=== PATIENT | female | born 2000 | race Caucasian/White ===

== ENCOUNTER → 2022-09-03 09:08 | Emergency (ER) | payer OTHER ==
[~2022-09-03 09:08] MED LIST: Ibuprofen 200 MG TAB ONE
== END | disposition home or self-care (01) ==
LOC: CSHERS 09:08
DX: J02.9 Acute pharyngitis, unspecified (principal); Z20.822 Contact with and (suspected) exposure to COVID-19; F17.290 Nicotine dependence, other tobacco product, uncomplicated
CPT/HCPCS: 87804; 99284; U0003; U0005

== ENCOUNTER 2023-12-31 13:02 | Inpatient (IN) | payer OTHER ==
[2023-12-31] MEDS ORDERED: fentaNYL 50 mcg/mL 1 mL Vial SLOW IVP PRN (14:56)
[2023-12-31] MEDS ORDERED: Misoprostol 200 MCG TAB PR PRN (14:56)
[2023-12-31] MEDS ORDERED: Ibuprofen 800 MG TAB PO PRN (14:56)
[2023-12-31] MEDS ORDERED: Promethazine HCl 25 MG/ML VIAL IM PRN (14:56)
[2023-12-31] MEDS ORDERED: Methylergonovine 0.2 MG/ML VIAL IM PRN (14:56)
[2023-12-31] MEDS ORDERED: Diphenoxylate HCl/Atropine Tablet PO PRN (14:56)
[2023-12-31] MEDS ORDERED: Carboprost 250 MCG/ML AMP IM PRN (14:56)
[2023-12-31] MEDS ORDERED: Ondansetron PF 4 MG/2 ML Vial IVP PRN (14:56)
[2023-12-31] MEDS ORDERED: Tranexamic Acid 1,000 MG/10 ML VIAL IVP PRN (14:56)
[2023-12-31] MEDS ORDERED: Lactated Ringer's 1,000 ML IV SCH (15:00)
[2023-12-31] MEDS ORDERED: Oxytocin 30 units/NS 500 ML 500 ML IV SCH ×2 (15:00)
[2023-12-31] MEDS: Misoprostol 100 MCG TAB VAG SCH (15:09)
[2023-12-31 15:36] LABS: #Basophils 0.03 10x3/uL (0.0-0.2); #Eosinphils 0.03 10x3/uL (0.0-0.5); #Monocytes 0.51 10x3/uL (0.0-1.1); #Neutrophils 7.24 10x3/uL (1.5-8.4); %Basophils 0.3 % (0.0-2.0); %Eosinophils 0.3 % (0.0-6.0); %Lymphocytes 14.4 % (18.0-47.0); %Monocytes 5.5 % (0.0-10.0); %Neutrophils 78.5 % (40.0-75.0); Hematocrit 24.8 % (34.9-44.5); Mean Corpuscular HGB CONC 32.3 g/dL (32.0-36.0); Mean Corpuscular Hemoglobin 26.4 pg (27.0-33.0); Mean Corpuscular Volume 81.8 fl (81.6-98.3); Mean Platelet Volume 13.3 fl (7.4-10.4); Platelet Count 181 10x3/uL (150-450); RBC Distribution Width 14.4 % (11.5-14.5); Red Blood Cell (RBC) Count 3.03 10x6/uL (3.90-5.03); White Blood Cell (WBC) Count 9.2 10x3/uL (3.5-10.5)
[2023-12-31 15:47] LABS: ALT (SGPT) 9 U/L (8-55); AST (SGOT) 18 U/L (5-34); Albumin 2.5 g/dL (3.5-5.0); Alkaline Phosphatase 159 U/L (40-110); Anion Gap 11 mmol/L (10-20); BUN (Urea Nitrogen) 6 mg/dL (7.0-18.7); Bilirubin, Total 0.2 mg/dL (0.2-1.2); Calc. Creatinine Clearance 0 mL/min (70-130); Calcium 8.7 mg/dL (7.8-10.44); Carbon Dioxide 20 mmol/L (22-29); Chloride 108 mmol/L (98-107); Estimated GFR 128; Globulin 3.6 g/dL (2.4-3.5); Glucose 102 mg/dL (70-105); Potassium 3.4 mmol/L (3.5-5.1); Protein, Total 6.1 g/dL (6.0-8.3); Sodium 136 mmol/L (136-145)
[2023-12-31 16:06] LABS: HBsAg Index 0.23 S/CO (0-0.99); Hep B Surf Ag - L&D Non-Reactive S/CO (NonReactive)
[2023-12-31 16:07] LABS: Syphilis Antibody Nonreactive (Nonreactive); Syphilis Antibody Index 0.03 S/CO (<1.00 Non-Reactive)
[2023-12-31 16:21] VITALS: BMI 26.7
[2023-12-31] MEDS: hydrALAZINE 20 MG/ML VIAL SLOW IVP PRN (17:14)
[2023-12-31] MEDS ORDERED: Lorazepam 2 MG/ML VIAL SLOW IVP PRN (17:17)
[2023-12-31] MEDS ORDERED: Calcium Gluc 4.6 MEQ/10 ML (100 MG/ML) SLOW IVP PRN (17:17)
[2023-12-31] MEDS: Magnesium Sulfate 20 gm/500 ml 20 GM/500 ML BAG IVPB SCH (17:22)
[2023-12-31] MEDS: Labetalol HCl 100 MG/20 ML VIAL SLOW IVP PRN (21:00)
[2023-12-31] MEDS ORDERED: Labetalol HCl 100 MG/20 ML VIAL SLOW IVP PRN ×2 (21:00)
[2023-12-31] MEDS ORDERED: hydrALAZINE 20 MG/ML VIAL SLOW IVP PRN (21:00)
[2023-12-31] MEDS: Labetalol HCl 100 MG TAB PO SCH (21:27)
[2023-12-31] MEDS: Magnesium Sulfate 20 gm/500 ml 20 GM/500 ML BAG ONE (22:11)
[2023-12-31] MEDS: Labetalol HCl 100 MG/20 ML VIAL ONE (22:11)
[2023-12-31] MEDS: Acetaminophen 500 MG TAB PO PRN (23:11)
[2024-01-01] MEDS: fentaNYL/Ropivacaine Epidural 100 ML ONE (04:07)
[2024-01-01] MEDS ORDERED: ePHEDrine Sulfate 50 MG/10 ML VIAL SLOW IVP PRN (04:25)
[2024-01-01] MEDS ORDERED: Moisturizing Cream (Eucerin) 113 GM JAR TOP PRN (04:25)
[2024-01-01] MEDS ORDERED: Lactated Ringer's 500 ML IV PRN (04:25)
[2024-01-01] MEDS ORDERED: Promethazine HCl 25 MG/ML VIAL IM PRN (04:25)
[2024-01-01] MEDS ORDERED: Ondansetron PF 4 MG/2 ML Vial IVP PRN (04:25)
[2024-01-01] MEDS ORDERED: Naloxone HCl 0.4 mg/ml Vial IVP PRN ×2 (04:25)
[2024-01-01] MEDS ORDERED: Acetaminophen 325 MG TAB PO PRN (04:25)
[2024-01-01] MEDS ORDERED: diphenhydrAMINE 50 MG/ML VIAL IVP PRN (04:25)
[2024-01-01] MEDS ORDERED: Communication Order-Pharmacy FS SCH (04:30)
[2024-01-01] MEDS: Oxytocin 30 units/NS 500 ML 500 ML IV SCH (06:25)
[2024-01-01 07:21] LABS: ALT (SGPT) 13 U/L (8-55); AST (SGOT) 23 U/L (5-34); Albumin 2.5 g/dL (3.5-5.0); Alkaline Phosphatase 184 U/L (40-110); Anion Gap 17 mmol/L (10-20); BUN (Urea Nitrogen) 4 mg/dL (7.0-18.7); Bilirubin, Total 0.3 mg/dL (0.2-1.2); Calc. Creatinine Clearance 146 mL/min (70-130); Calcium 7.8 mg/dL (7.8-10.44); Carbon Dioxide 16 mmol/L (22-29); Chloride 105 mmol/L (98-107); Estimated GFR 128; Globulin 3.3 g/dL (2.4-3.5); Glucose 80 mg/dL (70-105); Protein, Total 5.8 g/dL (6.0-8.3); Sodium 134 mmol/L (136-145)
[2024-01-01 07:49] LABS: #Basophils 0.01 10x3/uL (0.0-0.2); #Eosinphils 0.02 10x3/uL (0.0-0.5); #Monocytes 0.55 10x3/uL (0.0-1.1); %Basophils 0.1 % (0.0-2.0); %Eosinophils 0.2 % (0.0-6.0); %Lymphocytes 13.6 % (18.0-47.0); %Monocytes 5.2 % (0.0-10.0); %Neutrophils 79.3 % (40.0-75.0); Hematocrit 24.7 % (34.9-44.5); Hemoglobin 8.1 g/dL (12.0-15.5); Mean Corpuscular HGB CONC 32.8 g/dL (32.0-36.0); Mean Corpuscular Hemoglobin 26.7 pg (27.0-33.0); Mean Corpuscular Volume 81.5 fl (81.6-98.3); Mean Platelet Volume 12.8 fl (7.4-10.4); Platelet Count 171 10x3/uL (150-450); RBC Distribution Width 14.5 % (11.5-14.5); Red Blood Cell (RBC) Count 3.03 10x6/uL (3.90-5.03); White Blood Cell (WBC) Count 10.5 10x3/uL (3.5-10.5)
[2024-01-01] MEDS: fentaNYL 2 mcg/Ropivacaine 0.2% Epidural 100 ML CADD EPIDURAL SCH (12:46)
[2024-01-01] MEDS: Lidocaine 1% (PF) 30 ML VIAL SC PRN (18:57)
[2024-01-01 19:13] LABS: Analyzer IN Cardio CS NICU; RapidComm Collect By CBN
[2024-01-01 19:16] LABS: Analyzer IN Cardio CS NICU; RapidComm Collect By CBN; pH (Cord, venous) 7.355 (7.250-7.350)
[2024-01-01] MEDS ORDERED: Labetalol HCl 100 MG/20 ML VIAL SLOW IVP PRN (19:51)
[2024-01-01] MEDS: Ibuprofen 800 MG TAB PO SCH (21:01)
[2024-01-01] MEDS: Labetalol HCl 100 MG TAB PO SCH (21:30)
[2024-01-01] MEDS ORDERED: Milk Of Magnesia 30 ML UDCUP PO PRN (21:42)
[2024-01-01] MEDS ORDERED: Preparation H Ointment 28 GM TUBE PR PRN (21:42)
[2024-01-01] MEDS ORDERED: Bisacodyl 10 MG SUPP PR PRN (21:42)
[2024-01-01] MEDS ORDERED: Benzocaine-Menthol 82.5 ML CAN TOP PRN (21:42)
[2024-01-01] MEDS ORDERED: diphenhydrAMINE 25 MG CAP PO PRN (21:42)
[2024-01-01] MEDS ORDERED: hydrALAZINE 20 MG/ML VIAL SLOW IVP PRN (21:42)
[2024-01-01] MEDS ORDERED: Oxytocin 30 units/NS 500 ML 500 ML IV SCH (21:42)
[2024-01-01] MEDS ORDERED: Lanolin Ointment 7 GM TUBE TOP PRN (21:42)
[2024-01-01] MEDS ORDERED: HYDROcodone/Acetaminophen 5/325 mg Tablet PO PRN ×2 (21:57→21:58)
[2024-01-02 03:31] LABS: #Basophils 0.03 10x3/uL (0.0-0.2); #Eosinphils 0.01 10x3/uL (0.0-0.5); #Monocytes 0.55 10x3/uL (0.0-1.1); #Neutrophils 10.21 10x3/uL (1.5-8.4); %Basophils 0.2 % (0.0-2.0); %Eosinophils 0.1 % (0.0-6.0); %Lymphocytes 11.5 % (18.0-47.0); %Monocytes 4.5 % (0.0-10.0); Hematocrit 21.6 % (34.9-44.5); Mean Corpuscular HGB CONC 32.4 g/dL (32.0-36.0); Mean Corpuscular Hemoglobin 26.8 pg (27.0-33.0); Mean Corpuscular Volume 82.8 fl (81.6-98.3); Mean Platelet Volume 12.2 fl (7.4-10.4); Platelet Count 168 10x3/uL (150-450); RBC Distribution Width 14.5 % (11.5-14.5); Red Blood Cell (RBC) Count 2.61 10x6/uL (3.90-5.03); White Blood Cell (WBC) Count 12.3 10x3/uL (3.5-10.5)
[2024-01-02 03:53] LABS: ALT (SGPT) 12 U/L (8-55); AST (SGOT) 24 U/L (5-34); Alkaline Phosphatase 149 U/L (40-110); Anion Gap 13 mmol/L (10-20); BUN (Urea Nitrogen) 4 mg/dL (7.0-18.7); Bilirubin, Total 0.3 mg/dL (0.2-1.2); Calc. Creatinine Clearance 136 mL/min (70-130); Carbon Dioxide 20 mmol/L (22-29); Chloride 105 mmol/L (98-107); Estimated GFR 124; Glucose 92 mg/dL (70-105); Potassium 3.9 mmol/L (3.5-5.1); Sodium 134 mmol/L (136-145)
[2024-01-02 04:15] LABS: Calcium 6.8 mg/dL (7.8-10.44); Critical Call Chemistry NUR.NYC@0415
[2024-01-02 05:06] LABS: Critical Call Chemistry NUR.DH0@0506; Magnesium 8.4 mg/dL (1.6-2.6)
[2024-01-02] MEDS: Calcium Gluc 4.6 MEQ/10 ML (100 MG/ML) SLOW IVP PRN (05:10)
[2024-01-02] MEDS ORDERED: Ferrous Sulfate 325 MG TAB PO SCH (08:00)
[2024-01-02] MEDS: Docusate 100 MG CAP PO SCH ×2 (08:39→21:28)
[2024-01-02] MEDS: Labetalol HCl 100 MG TAB PO SCH (08:40)
[2024-01-02] MEDS: Ferrous Sulfate 325 MG TAB PO SCH (08:40)
[2024-01-02] MEDS: Ibuprofen 800 MG TAB PO SCH (08:41)
[2024-01-02] MEDS ORDERED: Magnesium Sulfate 20 gm/500 ml 20 GM/500 ML BAG IVPB PRN (11:00)
[2024-01-02] MEDS: Magnesium Sulfate 20 gm/500 ml 20 GM/500 ML BAG ONE (17:17)
[2024-01-02] MEDS ORDERED: Bupivacaine 0.25% HCL 30 ML VIAL ONE (19:44)
[2024-01-02] MEDS: Prenatal Vitamin 1 TAB PO SCH (21:28)
[2024-01-02] MEDS: Escitalopram Oxalate 10 mg Tablet PO SCH (21:40)
[2024-01-03] MEDS: Labetalol HCl 100 MG TAB PO SCH (01:08)
[2024-01-03 06:04] LABS: Hemoglobin 7.7 g/dL (12.0-15.5); Mean Corpuscular HGB CONC 32.1 g/dL (32.0-36.0); Mean Corpuscular Volume 84.2 fl (81.6-98.3); Mean Platelet Volume 11.8 fl (7.4-10.4); Platelet Count 184 10x3/uL (150-450); RBC Distribution Width 14.8 % (11.5-14.5); Red Blood Cell (RBC) Count 2.85 10x6/uL (3.90-5.03); White Blood Cell (WBC) Count 12.6 10x3/uL (3.5-10.5)
[2024-01-03 06:15] LABS: ALT (SGPT) 9 U/L (8-55); AST (SGOT) 26 U/L (5-34); Albumin 2.3 g/dL (3.5-5.0); Alkaline Phosphatase 163 U/L (40-110); Anion Gap 13 mmol/L (10-20); BUN (Urea Nitrogen) 6 mg/dL (7.0-18.7); Bilirubin, Total 0.3 mg/dL (0.2-1.2); Calc. Creatinine Clearance 132 mL/min (70-130); Calcium 7.8 mg/dL (7.8-10.44); Carbon Dioxide 22 mmol/L (22-29); Chloride 105 mmol/L (98-107); Estimated GFR 120; Globulin 3.5 g/dL (2.4-3.5); Glucose 72 mg/dL (70-105); Potassium 4.4 mmol/L (3.5-5.1); Protein, Total 5.8 g/dL (6.0-8.3); Sodium 136 mmol/L (136-145)
[2024-01-04 06:05] LABS: #Basophils 0.03 10x3/uL (0.0-0.2); #Eosinphils 0.12 10x3/uL (0.0-0.5); #Monocytes 0.53 10x3/uL (0.0-1.1); #Neutrophils 7.67 10x3/uL (1.5-8.4); %Basophils 0.3 % (0.0-2.0); %Eosinophils 1.1 % (0.0-6.0); %Lymphocytes 19.2 % (18.0-47.0); %Monocytes 5.1 % (0.0-10.0); %Neutrophils 73.2 % (40.0-75.0); Hematocrit 23.9 % (34.9-44.5); Hemoglobin 7.7 g/dL (12.0-15.5); Mean Corpuscular HGB CONC 32.2 g/dL (32.0-36.0); Mean Corpuscular Hemoglobin 26.8 pg (27.0-33.0); Mean Corpuscular Volume 83.3 fl (81.6-98.3); Mean Platelet Volume 11.4 fl (7.4-10.4); Platelet Count 183 10x3/uL (150-450); RBC Distribution Width 15.5 % (11.5-14.5); Red Blood Cell (RBC) Count 2.87 10x6/uL (3.90-5.03); White Blood Cell (WBC) Count 10.5 10x3/uL (3.5-10.5)
[2024-01-04] MEDS: Labetalol HCl 100 MG TAB PO SCH (11:06)
[2024-01-04] MEDS: NIFEdipine XL 30 MG ER.TAB PO SCH (17:37)
[2024-01-05] MEDS: fentaNYL/Ropivacaine Epidural 100 ML ONE (08:00)
[2024-01-05] MEDS: Boostrix 0.5 ML (Tdap) VIAL (>/=7 yrs of age) IM ONE (08:00)
[2024-01-05] MEDS: Lidocaine 1% (PF) 30 ML VIAL ONE (08:00)
[2024-01-05] MEDS: Escitalopram Oxalate 10 mg Tablet PO SCH (08:01)
[2024-01-05] MEDS ORDERED: NIFEdipine XL 30 MG ER.TAB PO SCH (09:00)
[2024-01-06 07:50] VITALS: BP 146/79; TEMP 98.2
== END 2024-01-06 11:45 | disposition home or self-care (01) | DRG 806 ==
LOC: CSHLD 13:02 → CSHPP 01-02 20:48
PROVIDERS: ADMIT Family Medicine; ATTEND Family Medicine
PROC: 3E0P7VZ Introduction of Hormone into Female Reproductive, Via Natural or Artificial Opening (ICD-10-PCS; 2023-12-31)
PROC: 10907ZC Drainage of Amniotic Fluid, Therapeutic from Products of Conception, Via Natural or Artificial Opening (ICD-10-PCS; 2023-12-31)
PROC: 10E0XZZ Delivery of Products of Conception, External Approach (ICD-10-PCS; principal; 2024-01-01)
PROC: 0UQGXZZ Repair Vagina, External Approach (ICD-10-PCS; 2024-01-01)
DX: O13.4 Gestational [pregnancy-induced] hypertension without significant proteinuria, complicating childbirth (principal); D62 Acute posthemorrhagic anemia; Z37.0 Single live birth; O14.14 Severe pre-eclampsia complicating childbirth; Z3A.38 38 weeks gestation of pregnancy; O71.4 Obstetric high vaginal laceration alone; O69.81X0 Labor and delivery complicated by cord around neck, without compression, not applicable or unspecified; E83.51 Hypocalcemia; O90.81 Anemia of the puerperium; F32.9 Major depressive disorder, single episode, unspecified; O99.344 Other mental disorders complicating childbirth; O32.6XX0 Maternal care for compound presentation, not applicable or unspecified; O99.285 Endocrine, nutritional and metabolic diseases complicating the puerperium
CPT/HCPCS: 36415; 51702; 80053; 82570; 82805; 83735; 84156; 85025; 85027; 86780; 86850; 86870; 86900; 86901; 87340; J0360; J0612; J0665; J2001; J2590; J3475